=== PATIENT | male | born 1990 | race Caucasian/White ===

== ENCOUNTER → 2019-03-23 | Outpatient (CLI) | payer OTHER ==
[~2019-03-23] MED LIST: NO HOME MEDICATIONS
== END ==
LOC: ZCOL.LAB 17:16
DX: Z01.812 Encounter for preprocedural laboratory examination (principal); Z86.14 Personal history of Methicillin resistant Staphylococcus aureus infection

== ENCOUNTER 2019-08-12 11:43 | Emergency (ER) | payer OTHER ==
[~2019-08-12] VITALS: Ht 182.9 cm; Wt 84.1 kg
[2019-08-12 11:50] VITALS: TEMP 98.2
[2019-08-12 12:30] LABS: BASO % 0.2 % (0.0-2.0); EOS % 0.4 % (0-4.0); GRAN # 2.7 (1.4-6.5); GRAN % 57.7 % (42.2-75.2); HEMATOCRIT 43.4 % (42.0-52.0); LYMPH # 1.6 (1.2-3.4); LYMPH % 34.9 % (20.0-51.0); MEAN CELL VOLUME 89 fl (80.0-100.0); MEAN CORPUSCULAR HEMOGLOBIN 31 pg (27.0-31.0); MEAN CORPUSCULAR HGB CONC 35 g/dl (33.0-37.0); MEAN PLATELET VOLUME 8.7 fl (7.4-10.4); MONO # 0.3 (0.1-0.6); MONO % 6.6 % (1.7-9.3); PLATELET COUNT 282 K/mm3 (130-400); RED BLOOD COUNT 4.86 M/mm3 (4.20-5.60); REDCELL DISTRIBUTION WIDTH-CV 12.5 % (11.5-14.5)
[2019-08-12 12:40] LABS: ALANINE AMINOTRANSFERASE 22 U/L (21-72); ALBUMIN 5.3 gm/dL (3.5-5.0); ALKALINE PHOSPHATASE 55 U/L (50-136); ANION GAP 10 mmol/L (7-16); AST,SGOT 23 U/L (15-37); BILIRUBIN,TOTAL 0.8 mg/dL (0.0-1.0); BLOOD UREA NITROGEN 16 mg/dL (9-20); CALCIUM 9.7 mg/dL (8.4-10.2); CARBON DIOXIDE 28 mmol/L (22-30); CHLORIDE 101 mmol/L (98-107); CREATININE, serum 0.87 (0.66-1.25); GLUCOSE 95 mg/dL (74-106); POTASSIUM 4.2 mmol/L (3.4-5.0); SODIUM 139 mmol/L (137-145); TOTAL PROTEIN 8.5 gm/dL (6.4-8.2)
[2019-08-12 12:55] LABS: PROTHROMBIN TIME 11.5 SECONDS (9.7-12.8)
[2019-08-12 13:03] LABS: TROPONIN-I < 0.012 ng/mL (0.000-0.035)
[2019-08-12 14:13] LABS: D-DIMER < 200.00 ng/mLDDu (200-230)
[2019-08-12] MEDS ORDERED: PHENERGAN 25 TA25 MG PO (14:28)
[2019-08-12 14:49] VITALS: BP 129/87; PULSE 68
== END 2019-08-12 14:47 | disposition home or self-care (01) ==
LOC: COL.ER 11:43
PROVIDERS: Emergency Medicine
DX: R51 Headache (principal); R07.89 Other chest pain; Z86.718 Personal history of other venous thrombosis and embolism
CPT/HCPCS: J2405; J7030